=== PATIENT | male | born 1950 | race Caucasian/White ===

== ENCOUNTER → 2023-12-22 10:28 | Outpatient (REF) | payer MEDICARE, SELFPAY | LOC: WDC 10:28 | PROVIDERS: ATTENDING PHYSICIAN Internal Medicine Geriatric Medicine | DX: N64.4 Mastodynia (principal); N62 Hypertrophy of breast | CPT/HCPCS: 76642; 77062; 77066 ==

== ENCOUNTER → 2024-01-11 12:50 | Outpatient (REF) | payer MEDICARE, SELFPAY | LOC: RSP 12:50 | PROVIDERS: ATTENDING PHYSICIAN Internal Medicine Geriatric Medicine | DX: R61 Generalized hyperhidrosis (principal); R06.09 Other forms of dyspnea; I10 Essential (primary) hypertension; E78.2 Mixed hyperlipidemia; R73.01 Impaired fasting glucose; C61 Malignant neoplasm of prostate; Z90.79 Acquired absence of other genital organ(s); N40.1 Benign prostatic hyperplasia with lower urinary tract symptoms; N62 Hypertrophy of breast; E55.9 Vitamin D deficiency, unspecified; R53.83 Other fatigue; Z13.89 Encounter for screening for other disorder; N45.1 Epididymitis; I70.0 Atherosclerosis of aorta; R01.1 Cardiac murmur, unspecified; M79.10 Myalgia, unspecified site; M79.602 Pain in left arm | CPT/HCPCS: 94727; 94729; 71046; 71100; 72052; 88738; 94010 ==

== ENCOUNTER → 2024-02-09 10:54 | Outpatient (REF) | payer MEDICARE, SELFPAY | LOC: RCS 10:54 | PROVIDERS: ATTENDING PHYSICIAN Nurse Practitioner Family | DX: R09.89 Other specified symptoms and signs involving the circulatory and respiratory systems (principal); I10 Essential (primary) hypertension; R01.1 Cardiac murmur, unspecified; M79.602 Pain in left arm; R06.09 Other forms of dyspnea; R53.83 Other fatigue | CPT/HCPCS: 93005 ==

== ENCOUNTER → 2024-03-28 13:54 | Outpatient (REF) | payer MEDICARE, SELFPAY | LOC: RAD 13:54 | PROVIDERS: ATTENDING PHYSICIAN Nurse Practitioner Family; FAMILY PHYSICIAN Internal Medicine Geriatric Medicine | DX: R09.89 Other specified symptoms and signs involving the circulatory and respiratory systems (principal) | CPT/HCPCS: 93880 ==

== ENCOUNTER 2024-04-03 23:24 | Emergency (ER) | payer MEDICARE, SELFPAY ==
[2024-04-03 23:29] VITALS: BP 173/81
[2024-04-04 00:02] VITALS: BMI 23.6
[2024-04-04 00:30] LABS: % Basophils 0.4 % (0-2); % Eosinophils 0.3 % (0-6); % Immature Granulocytes 0.4 % (0-0.5); % Lymphocytes 17.2 % (20.5-51.1); % Monocytes 7.7 % (1.7-9.3); Absolute Basophils 0.1 10^3/uL (0-0.2); Absolute Immature Granulocytes 0.1 10^3/uL (0-0.05); Absolute Lymphocytes 2.2 10^3/uL (1.2-3.4); Absolute Neutrophils 9.4 10^3/uL (1.4-6.5); Hematocrit 38.5 % (39.0-52.0); Hemoglobin 13.6 g/dL (13.0-18.0); Mean Corp Hgb Conc. 35.3 g/dL (33.0-37.0); Mean Corpuscular Hgb 29.8 pg (27.0-31.0); Mean Corpuscular Volume 84.4 fL (80.0-94.0); Mean Platelet Volume 10.1 fL (7.4-10.4); Nucleated Red Blood Cells % 0 % (-); Platelet Count 278 10^3/uL (130-400); Red Blood Cell Count 4.56 10^6/uL (4.70-6.10); Red Cell Dist. Width 12.5 % (11.5-14.5); White Blood Cell Count 12.6 10^3/uL (4.8-10.8)
--- NOTE | 2024-04-04 00:30 | ED.GENMED ---
History of Present Illness
General
Chief Complaint: Abdominal Pain
Source: patient
Exam Limitations: none
Time Seen by Provider: 04/04/24 00:26
Travel History
Have you had any contact with someone who has COVID-19?: No
Do you have any symptoms of coronavirus? Fever > 100 degrees, chills, cough, shortness of breath, sore throat, loss of taste or smell, muscle aches, or headache?: No
History of Present Illness
History of Present Illness:
See MDM
Past History
Past History
ED Past Medical History: Cancer (Testicular), HTN and Hypercholesterolemia
ED Past Surgical History: Urological
Social History
Tobacco: Non-smoker
Alcohol: Occasional
Drug: None
Personal:
Living: with family
Employment: Employed
Family History
Family History: Negative CAD
Phy Exam
Physical Exam
Physical Exam:
See MDM
Course
Orders/Labs/Results
Orders:
Orders
04/04/24 00:19
Complete Blood Count/With Diff Urgent
Lactate Level [Lactic Acid] Urgent
04/04/24 00:29
CT Abd/pelvis W Iv Cont Urgent
Comment:
Reason For Exam: R mid and RLQ pain
Ketorolac [Toradol] 30 mg IV NOW STA
04/04/24 00:43
Comprehensive Metabolic Panel Urgent
Lipase Urgent
Comment: REDRAW
04/04/24 01:58
Urinalysis Reflex To Culture Urgent
Date Specimen was Collected: 04/04/24
Time Specimen was Collected: 01:57
Abnormal Lab Results
04/04/24 04/04/24 04/04/24
00:19 00:43 01:58
WBC 12.6 H 10^3/uL
(4.8-10.8)
RBC 4.56 L 10^6/uL
(4.70-6.10)
Hct 38.5 L %
(39.0-52.0)
Abs Immat Gran (auto) 0.1 H 10^3/uL
(0-0.05)
Absolute Neuts (auto) 9.4 H 10^3/uL
(1.4-6.5)
Absolute Monos (auto) 1.0 H 10^3/uL
(0.1-0.6)
Lymphocytes % 17.2 L %
(20.5-51.1)
Glucose 122 H mg/dl
(70-99)
Urine Ketones 1+ A
(Negative)
04/04/24 00:19
04/04/24 00:43
Vital Signs
Initial and Last Documented VS:
Initial Vital Signs
Temp Pulse Resp BP Pulse Ox
99.1 F 78 17 173/81 99
04/03/24 23:29 04/03/24 23:29 04/03/24 23:29 04/03/24 23:29 04/03/24 23:29
Last Documented Vital Signs
Temp Pulse Resp BP Pulse Ox
98.8 F 75 17 135/68 95
04/04/24 00:43 04/04/24 02:02 04/03/24 23:29 04/04/24 02:02 04/04/24 02:02
MDM/Problems Addressed
Differential Diagnosis Includes:
HPI and MDM Narrative:
73-year-old male presenting with right lower quadrant pain. Patient is having decreased flatulence. He has increased belching. He feels like his abdomen is distended.
On exam, he is well-appearing nontoxic. There is mild right lower quadrant tenderness. No rebound. Will obtain CT to rule out small bowel obstruction
Physical exam
General: Well appearing and non-toxic
HEENT: protecting airway
Neck: appears supple
CV: No evidence of cyanosis
Resp: No accessory muscle use
Abd: Mildly distended. Mild right lower quadrant pain. No rebound
Extremities: No deformities
Neuro: alert
Psych: Normal affect
Skin: Intact
Problems Addressed including Acute and Chronic Conditions affecting care:
1. Abdominal pain
Acuity: acute
Prognosis: stable
Details: Given the distention and the decreased flatulence, will obtain CT to rule out small bowel obstruction
Updates
CT negative for acute pathology. On reassessment, patient feels much better and feels comfortable going home
Differential Diagnosis (but not limited to): Acute appendicitis, small bowel obstruction, colitis
Testing considered: Urinalysis
Drug therapy (if applicable): OTC meds, please see d/c instruction regarding Rx drugs
Amount and/or Complexity of Data Reviewed
Clinical info obtained from: Patient
External data reviewed: N/A
Labs I independently reviewed (but not limited to): Mild leukocytosis
Radiology: The CT scan was personally and independently reviewed. In addition, official CT report reviewed.
Pulse Ox: not hypoxic
EKG independently reviewed: N/A
Traveling Storekeeper: N/A
Critical Care: N/A
Risk of Complication:
Social Determinants of health: Good social support
Discussed with other providers: N/A
Escalation of Care includes Admit/Obs: After being observed in the Emergency Department, pt stable for discharge.
Occasional wrong word or 'sound a like' substitutions may have occurred due to the inherent limitations of voice recognition software. Read the chart carefully and recognize, using context, where substitutions have occurred.
*Critical Care Note
Total Time (30-74mins, 75-104mins- exclusive of procedures): Not Applicable
ED Attending Note
-
Portions of this chart may have been created with voice recognition software.� Occasional wrong word or��sound alike� substitutions may have occurred due to the inherent limitations of voice recognition software.
Discharge Plan
Departure
Patient Disposition: Home (Routine Discharge)
Date of Disposition: 04/04/24
Time of Disposition: 02:44
Patient with high blood pressure during this ER visit?: Yes
Discharge Problem:
Abdominal pain
Instructions: Abdominal Pain, BLOOD PRESSURE
Prescriptions:
No Action
multivitamin [Daily Vitamin] 1 EACH tablet
1 ea PO DAILY
atorvastatin 10 MG tablet
10 mg PO DAILY
losartan [Cozaar] 100 MG tablet
100 mg PO DAILY
esomeprazole magnesium [Nexium] 20 MG capsule,delayed release(DR/EC)
20 mg PO DAILY
Magnesium Sulfate: 1 TAB
1 tab PO WEEKLY
Patient Comments:
takles sporadically
amlodipine 2.5 mg Tablet
5 mg PO DAILY
B-complex with vitamin C [B-Vitamins W/C] Capsule
1 cap PO DAILY
Kersey 3 Capsule
1,000 mg PO DAILY
cholecalciferol (vitamin D3) [Vitamin D3] 50 mcg (2,000 unit) Capsule
50 mcg PO DAILY
Osteo Bi-Flex Triple Strength 750 mg-644 mg- 30 mg-1 mg Tablet
1 tab PO DAILY
Referrals:
Yogi De Santiago MD [Family Provider] -
Activity Restrictions/Additional Instructions:
Please return for any worsening symptoms.
You may return at any time if you have further concerns.
Please follow up with your doctor at the first available appointment, preferably this week.
Thank you for choosing [facility].
Interventions
Interventions:
*Risk Screen - Suicide Last Done: 04/03/24 23:29
*General Assessment Last Done: 04/03/24 23:29
*Neglect/Abuse Screening Last Done: 04/03/24 23:29
ED- Fall Risk Assessment Last Done: 04/03/24 23:29
*ED COVID-19 Vaccine History Last Done: 04/03/24 23:29
XJ-Mzsudv-Akkyfvapxv Assessment Last Done: 04/04/24 00:27
Discharge Date and Time
Print Language: SETSWANA
[2024-04-04] MEDS: TORADOL 30 MG IV (00:35)
[2024-04-04 00:51] LABS: Lactic Acid 0.7 mmol/L (0.7-2.0)
[2024-04-04 01:27] LABS: ALT (SGPT) 21 U/L (0-50); AST (SGOT) 21 U/L (17-59); Albumin 3.9 g/dl (3.5-5.0); Alkaline Phosphatase 81 U/L (38-126); Blood Urea Nitrogen 14 mg/dl (9-20); Calcium 9.5 mg/dl (8.4-10.2); Carbon Dioxide 23 mmol/L (22-30); Chloride 102 mmol/L (98-107); Estimated Creatinine Clearance 87 ml/min; Glucose 122 mg/dl (70-99); Potassium 3.9 mmol/L (3.5-5.1); Sodium 135 mmol/L (135-145); Total Bilirubin 0.6 mg/dl (0.2-1.3); Total Protein 6.3 g/dl (6.3-8.2); eGFR > 60.00
[2024-04-04 02:02] VITALS: BP 135/68
[2024-04-04 02:07] LABS: Urine Albumin Negative (Neg - Trace); Urine Bilirubin Negative (Negative); Urine Character Clear (Clear); Urine Color Yellow; Urine Glucose Negative (Negative); Urine Ketone 1+ (Negative); Urine Leukocyte Negative (Negative); Urine Nitrite Negative (Negative); Urine Occult Blood Negative (Negative); Urine Urobilinogen Negative (Neg - 1+); Urine pH 6.5 (5.0-9.0)
[2024-04-04 02:26] LABS: Lipase 65 U/L (23-300)
== END 2024-04-04 02:55 | disposition home or self-care (01) ==
LOC: EMR 23:24
PROVIDERS: Emergency Medicine; EMERGENCY PHYSICIAN Student in an Organized Health Care Education/Training Program; FAMILY PHYSICIAN Internal Medicine Geriatric Medicine
DX: R10.31 Right lower quadrant pain (principal); R14.0 Abdominal distension (gaseous); I10 Essential (primary) hypertension; E78.00 Pure hypercholesterolemia, unspecified; Z85.47 Personal history of malignant neoplasm of testis
CPT/HCPCS: 99285; 96374; 74177; 80053; 81003; 83605; 83690; 85025; Q9967